=== PATIENT | male | born 1975 | race Caucasian/White ===

== ENCOUNTER 2016-12-11 23:00 | Observation (INO) | payer OTHER, BC ==
--- NOTE | ~2016-12-11 | OP ---
Record Of Operation [facility] [address] [place]. [address] NAME: KANIKA GOLDEN : 71 STATUS : ADM Panfilo PAT#: [id number] AGE: 41 ADM/REG DATE : 12/11/16 MR#: [id number] REPORT SERV DATE: 12/12/16 DICTATED BY: JUNIOR YANG DATE: 12/12/16 REPORT STATUS : Draft TRANSCRIBED BY: MODL DATE: 12/12/16 DATE OF PROCEDURE: 12/12/2016 PREOPERATIVE DIAGNOSIS: Acute appendicitis. POSTOPERATIVE: DIAGNOSIS Acute appendicitis. PROCEDURE: Laparoscopic appendectomy. RESIDENT SURGEON: Ana Bain. ANESTHESIA: General endotracheal anesthesia and local anesthesia. SPECIMENS: Appendix. FLUIDS: 1000 mL of crystalloid. COMPLICATIONS: None. INDICATION: Mr. Golden is a 41-year-old male, who presented to the [facility] emergency room, complaining of abdominal pain on workup. He was felt to have physical exam, laboratory findings, and imaging consistent with early acute appendicitis. Risks and benefits of laparoscopic appendectomy were discussed with the patient as well as alternatives. Questions were sought and answered. The patient wished to proceed. DESCRIPTION OF OPERATION: The patient was brought to the operating room, placed supine on the operating table. After the satisfactory induction of general endotracheal anesthesia, the patient's abdomen was prepped and draped in usual sterile fashion. A time-out was performed with all operating room staff present. The patient received appropriate preoperative antibiotics. We began by anesthetizing the skin over the umbilicus. We made incision through the center of the umbilicus longitudinally with a scalpel and then dissected down to the fascia using blunt dissection. A small umbilical hernia was encountered and a Marzena was passed through this to ensure intraabdominal placement. We then inserted a 12 mm trocar in the fascia and a Hannon. The abdomen was insufflated to a pressure of 15 mmHg with carbon dioxide gas. Once the abdomen is insufflated, the laparoscopic was inserted and the intraabdominal contents inspected for injury during trocar placement and none were noted. We then placed the patient into the Trendelenburg right-side up position. Two more trocars were placed, one in the suprapubic region and one in the right upper quadrant. Prior to each trocar placement, the skin was anesthetized with local anesthesia. An incision made with a scalpel and the 5 mm trocars were placed under direct visualization with the laparoscope. We were able to locate the appendix. The tip of the appendix appeared very mildly thickened. There were some lateral attachments, which were taken down with sharp dissection with scissors. The appendix was then able to be elevated and a window was created at the base of the mesentery using a Magy. We then passed a blue laparoscopic stapler through the window we had created and divided the appendix at the Record Of Operation [address] [id number] NAME: KANIKA GOLDEN : 71 STATUS : ADM Panfilo PAT#: [id number] AGE: 41 ADM/REG DATE : 12/11/16 MR#: [id number] REPORT SERV DATE: 12/12/16 DICTATED BY: JUNIOR YANG DATE: 12/12/16 REPORT STATUS : Draft TRANSCRIBED BY: ABENA DATE: 12/12/16 base. Further, we then were able to use a white vascular load with the stapler and take this across the mesoappendix dividing it. The appendix was placed into a laparoscopic retrieval bag. The staple lines were inspected and were felt to be hemostatic. Additionally, there was some serous fluid in the pelvis and this was suctioned. We then removed the two 5 mm trocars under direct visualization with the laparoscope. Lastly, removed the umbilical port site as well the appendix. The appendix was passed off the table as specimen. The fascia of the umbilical site was reapproximated using 0 Vicryl and UR6 in simple fashion x2. All incisions were irrigated and then skin edges were reapproximated using a 4-0 Monocryl suture in simple subcuticular fashion. Sterile dressings and Band-Aids were placed. The patient tolerated the procedure well and was able to be extubated in the operating room, and transferred to PACU in stable condition. Dr. Junior Yang, the attending was present and scrubbed for the entirety of the case. There were no complications. DICTATED BY: Ana Bain MD SE/ABENA Junior Yang M.D. / [id number] CC: Sarahi Mondragon M.D.
[~2016-12-11 23:00] MED LIST: AMB10 PO; LEVBID PO; NEXIUM40 PO; V5 PO
[2016-12-12 00:14] LABS: BASOPHILS 0.2 %; BASOPHILS ABSOLUTE 0.01 10/3/uL (0.0-0.16); EOSINOPHILS 1.1 %; EOSINOPHILS ABSOLUTE 0.05 10/3/uL (0.0-0.53); HEMATOCRIT 43.4 % (40.0-51.0); HEMOGLOBIN 15.3 g/dL (13.6-17.8); IMMATURE GRANULOCYTES 0.4 %; IMMATURE GRANULOCYTES ABSOLUTE 0.02 10/3/uL (0.0-0.11); LYMPHOCYTES 28.3 %; LYMPHOCYTES ABSOLUTE 1.32 10/3/uL (0.67-4.30); MEAN CORPUS HGB CONC 35.3 g/dL (32.0-36.0); MEAN CORPUSCULAR HEMOGLOB 32.5 pg (26.0-34.0); MEAN CORPUSCULAR VOLUME 92.1 fL (80-100); MEAN PLATELET VOLUME 9.8 fL (9.2-13.0); MONOCYTES 8.8 %; MONOCYTES ABSOLUTE 0.41 10/3/uL (0.21-1.20); NEUTROPHILS 61.2 %; NEUTROPHILS ABSOLUTE 2.86 10/3/uL (2.02-8.40); PLATELET COUNT 226 10/3/uL (150-400); RED CELL COUNT 4.71 10/6/uL (4.7-6.1); WHITE BLOOD CELLS 4.7 10/3/uL (4.5-10.5)
[2016-12-12 00:18] LABS: ER CBC TAT 0 Hrs 12 MinsNP; MANUAL DIFF NO %
[2016-12-12 00:28] LABS: A/G RATIO 1.2 (0.7-1.9); ALBUMIN 4.1 G/DL (3.5-5.0); ALKALINE PHOSPHATASE 78 U/L (45-117); CALCIUM, SERUM 9.2 MG/DL (8.5-10.4); CHLORIDE, SERUM 106 MMOL/L (96-112); CO2 (CARBON DIOXIDE) 27 MMOL/L (24-34); CREATININE 1.16 MG/DL (0.70-1.30); GFR AFRICAN AMERICAN 89 ML/MIN (>=60); GFR NON AFRICAN AMERICAN 77 ML/MIN (>=60); GLUCOSE, SERUM 101 MG/DL (60-99); POTASSIUM, SERUM 4.1 MMOL/L (3.5-5.3); SGOT(AST) 16 U/L (5-40); SGPT(ALT) 28 U/L (5-65); SODIUM, SERUM 141 MMOL/L (135-148); TOTAL BILIRUBIN 0.7 MG/DL (0-1.2); TOTAL PROTEIN 7.4 G/DL (6.0-8.5)
[2016-12-12 00:29] LABS: BUN (BLOOD UREA NITROGEN) 9 MG/DL (6-23); GLOBULIN 3.3 G/DL (2.5-4.1)
[2016-12-12 01:26] LABS: ASCORBIC ACID (UR NOT ORDER) NEG (NEG); BILIRUBIN, URINE NEGATIVE (NEG); ER URINALYSIS TAT 0 Hrs 00 Mins; KETONE, URINE NEGATIVE (NEG); LEUKOCYTE ESTERASE(NOT OR NEG (NEG); NITRITE (URINE) NEG (NEG); WBC (NOT ORDERED) (RFLEX) 1 (0-5)
[2016-12-12] MEDS ORDERED: NEXIUM40 PO (02:14)
[2016-12-12] MEDS ORDERED: AMB10 PO (02:15)
[2016-12-12] MEDS ORDERED: PCET PO (15:15)
== END 2016-12-12 18:10 | disposition home or self-care (01) ==
LOC: ER 23:00 → 5SO 23:59
PROVIDERS: Specialist
PROC: 0DTJ4ZZ Resection of Appendix, Percutaneous Endoscopic Approach (ICD-10-PCS; principal; 2016-12-12 10:30)
DX: K35.80 Unspecified acute appendicitis (principal); K21.9 Gastro-esophageal reflux disease without esophagitis; F41.9 Anxiety disorder, unspecified; M54.16 Radiculopathy, lumbar region; Z98.890 Other specified postprocedural states; Z79.899 Other long term (current) drug therapy
CPT/HCPCS: 74176; 80053; 81001; 83690; 85025; 88304; 96374; 96375; 96376; 99285; A9270-GY; G0378; J0330; J1170; J2250; J2405; J2543; J2710; J3010